=== PATIENT | female | born 1940 | race Caucasian/White ===

== ENCOUNTER 2018-05-24 08:44 | Emergency (ER) | payer SELFPAY ==
[~2018-05-24] VITALS: Ht 152.4 cm; Wt 69.0 kg
[~2018-05-24 08:44] MED LIST: VALS160T2 PO
[2018-05-24] MEDS ORDERED: SODIUM CHLORIDE 0.9% 500 ML IV ONE (11:00)
[2018-05-24] MEDS ORDERED: ACETAMINOPHEN 325MG TABLET PO ONE (11:00)
[2018-05-24] MEDS ORDERED: HYDR500C18 MT (11:06)
[2018-05-24] MEDS ORDERED: [UNRECOGNIZED DRUG - CODE] MT (11:09)
[2018-05-24 11:16] LABS: BASOPHILS % 1.5 % (0.0-2.0); HEMATOCRIT. 26.5 % (36.0-48.0); LYMPHOCYTES % 13.9 % (20.0-50.0); MEAN CORPUSCULAR HEMOGLOBIN 36.3 pg (28.0-32.0); MEAN PLATELET VOLUME 7.5 fl (7.4-10.4); MONOCYTES % 11.1 % (2.0-8.0); NEUTROPHILS % 72.5 % (40.0-76.0); PLATELET 612 x1000/uL (130-400); RED BLOOD CELL COUNT 2.48 mill/uL (4.2-5.4); RED CELL DISTRIBUTION WIDTH 16.9 % (11.6-14.6)
[2018-05-24 11:23] LABS: CHLORIDE 104 mEq/L (98-107)
[2018-05-24] MEDS ORDERED: AML (11:39)
[2018-05-24 12:20] LABS: CLARITY URINE CLEAR (CLEAR); COLOR URINE YELLOW (YELLOW); KETONES URINE NEGATIVE (NEGATIVE); LEUKOCYTE ESTERASE URINE 2+ (NEGATIVE); NITRITE URINE NEGATIVE (NEGATIVE); OCCULT BLOOD URINE NEGATIVE (NEGATIVE); PROTEIN URINE NEGATIVE (NEGATIVE); UROBILINOGEN URINE 0.2 E.U./dL (0.2-1.0)
[2018-05-24 13:24] LABS: *AMPHETAMINES SCREEN URINE NEGATIVE (NEGATIVE); *BARBITURATES SCREEN URINE NEGATIVE (NEGATIVE); *BENZODIAZEPINES SCREEN URINE NEGATIVE (NEGATIVE); *COCAINE SCREEN URINE NEGATIVE (NEGATIVE); METHADONE URINE SCREEN NEGATIVE (NEGATIVE); OPIATES URINE SCREEN NEGATIVE (NEGATIVE)
[2018-05-24 13:25] LABS: CANNABINOID URINE SCREEN NEGATIVE (NEGATIVE); PHENCYCLIDINE URINE SCREEN NEGATIVE (NEGATIVE)
[2018-05-24] MEDS ORDERED: NITROFURANTOIN 100MG M/M CAPSULE PO ONE (15:45)
[2018-05-24] MEDS ORDERED: IBUPROFEN 600MG TABLET PO ONE (15:45)
[2018-05-24 16:18] VITALS: BP 112/64
== END 2018-05-24 16:18 | disposition home or self-care (01) ==
LOC: ER 09:42
DX: M54.12 Radiculopathy, cervical region (principal); M25.512 Pain in left shoulder; M25.511 Pain in right shoulder; M54.6 Pain in thoracic spine; M54.2 Cervicalgia; M48.00 Spinal stenosis, site unspecified; N39.0 Urinary tract infection, site not specified; N17.0 Acute kidney failure with tubular necrosis; R82.71 Bacteriuria; D53.9 Nutritional anemia, unspecified; D64.9 Anemia, unspecified; D72.810 Lymphocytopenia; D72.821 Monocytosis (symptomatic); M47.9 Spondylosis, unspecified; R73.9 Hyperglycemia, unspecified; I63.81 Other cerebral infarction due to occlusion or stenosis of small artery; I10 Essential (primary) hypertension; K59.00 Constipation, unspecified; J06.9 Acute upper respiratory infection, unspecified; Z79.899 Other long term (current) drug therapy
CPT/HCPCS: 36415; 70450; 71045; 72040; 73030; 80053; 80305; 81003; 83735; 83880; 84484; 85025; 87040; 87086; 93005; 99284; J7040

== ENCOUNTER 2019-11-29 11:49 | Emergency (ER) | payer MEDICAID ==
[~2019-11-29] VITALS: Ht 152.4 cm; Wt 74.8 kg
[~2019-11-29 11:49] MED LIST changes: +AML; +HYDR500C18 MT; +[UNRECOGNIZED DRUG - CODE] MT
[2019-11-29 12:00] VITALS: BP 152/64
[2019-11-29] MEDS ORDERED: CEFTRIAXONE SODIUM 1 G/VIAL IM ONE (15:30)
[2019-11-29] MEDS ORDERED: LIDOCAINE HCL 1% 20ML VIAL (Pyxis) INJ INFIL ONE (15:30)
== END 2019-11-29 15:40 | disposition home or self-care (01) ==
LOC: ER 12:07
DX: M25.571 Pain in right ankle and joints of right foot (principal); I10 Essential (primary) hypertension; M19.90 Unspecified osteoarthritis, unspecified site
CPT/HCPCS: 73610; 99283; J0696; J3490